=== PATIENT | male | born 1995 | race African-American/Black ===

== ENCOUNTER 2022-03-27 00:52 | Emergency (ER) | payer SELFPAY ==
[2022-03-27] MEDS ORDERED: hydrOXYzine HCl 25 MG Tab PO ONE (02:02)
[2022-03-27 02:25] LABS: CORONAVIRUS COVID-19 NAA NEGATIVE (NEGATIVE); INFLUENZA A NAA NEGATIVE (NEGATIVE); INFLUENZA B NAA NEGATIVE (NEGATIVE); RESPIRATORY SYNCYTIAL VIR NAA NEGATIVE (NEGATIVE)
== END 2022-03-27 02:43 | disposition home or self-care (01) ==
LOC: MW.ED 00:52
DX: R07.0 Pain in throat (principal); F17.210 Nicotine dependence, cigarettes, uncomplicated; Z20.822 Contact with and (suspected) exposure to COVID-19
CPT/HCPCS: 0241U; 99284; A9270

== ENCOUNTER 2022-06-17 00:29 | Emergency (ER) | payer SELFPAY | END 2022-06-17 03:19 | disposition home or self-care (01) | LOC: MW.ED 00:29 | DX: T45.0X1A Poisoning by antiallergic and antiemetic drugs, accidental (unintentional), initial encounter (principal) | CPT/HCPCS: 71046; 71046-26; 99284 ==

== ENCOUNTER 2022-08-05 16:38 | Emergency (ER) | payer SELFPAY | END 2022-08-05 17:09 | disposition left against medical advice (07) | LOC: MW.ED 16:38 | DX: Z53.21 Procedure and treatment not carried out due to patient leaving prior to being seen by health care provider (principal) ==

== ENCOUNTER 2022-10-13 16:57 | Emergency (ER) | payer SELFPAY | END 2022-10-13 17:45 | disposition left against medical advice (07) | LOC: MW.ED 16:57 | DX: Z53.21 Procedure and treatment not carried out due to patient leaving prior to being seen by health care provider (principal) ==